=== PATIENT | female | born 1985 | race Hispanic/Latino ===

== ENCOUNTER 2024-11-07 08:45 | Day surgery (SDC) | payer OTHER ==
[~2024-11-07] VITALS: Ht 162.6 cm; Wt 68.0 kg
[2024-11-07] VITALS (11 sets, daily range): BP systolic 114–129; BP diastolic 60–75; PULSE 72–108; RESP 15–18; TEMP 97.6–98.8
[~2024-11-07 08:45] MED LIST: 0.9%NACL 1000ML 1,000 ML IV ONE
[2024-11-07] MEDS: 0.9%NACL 1000ML 1,000 ML IV ONE (09:50)
[2024-11-07] MEDS ORDERED: LIDOCAINE PF 100MG/5ML (2%) SYRINGE 5ML ONE (11:11)
[2024-11-07] MEDS ORDERED: proPOFol 10 MG/ML 20ML VIAL IV ONE (11:11)
--- NOTE | 2024-11-07 12:29 | NUR ---
Full and complete Discharge Instructions given to Patient and Family both verbally and in writing.. All questions answered.Voiced understanding to GI procedure precautions and Follow Up. PIV removed with catheter tip intact. Denies c/o pain or discomfort. W/C to POV with Family to home.
== END 2024-11-07 12:25 | disposition home or self-care (01) ==
LOC: DAH 08:45 → ENDO 08:45
PROVIDERS: ATTEND Internal Medicine
DX: R10.10 Upper abdominal pain, unspecified (principal); K86.9 Disease of pancreas, unspecified; R93.5 Abnormal findings on diagnostic imaging of other abdominal regions, including retroperitoneum; K76.0 Fatty (change of) liver, not elsewhere classified; R93.2 Abnormal findings on diagnostic imaging of liver and biliary tract; D12.6 Benign neoplasm of colon, unspecified; K64.8 Other hemorrhoids; Z90.710 Acquired absence of both cervix and uterus; Z79.899 Other long term (current) drug therapy
CPT/HCPCS: 43237; J7030 ×2; J2003; J2704; A4620; A4215 ×2; A4223; A4222; A4221; A4663; A4606; J3490